=== PATIENT | female | born 1960 | race African-American/Black ===

== ENCOUNTER 2023-02-21 18:35 | Emergency (ER) | payer OTHER | END 2023-02-21 22:17 | disposition left against medical advice (07) | LOC: MED 18:35 | DX: Z53.21 Procedure and treatment not carried out due to patient leaving prior to being seen by health care provider (principal) ==

== ENCOUNTER 2023-02-24 08:28 | Emergency (ER) | payer OTHER ==
[~2023-02-24] VITALS: Ht 175.3 cm; Wt 87.1 kg
[2023-02-24] VITALS (8 sets, daily range): BP systolic 155–163; BP diastolic 93–99; PULSE 74–88; RESP 17–18; TEMP 97.9–98.7; O2SAT 98–100
[2023-02-24 10:32] LABS: BASOPHILS # (AUTO) 0.1 K/uL (0.00-0.22); EOSINOPHILS # (AUTO) 0.1 K/uL (0-0.4); EOSINOPHILS % (AUTO) 2.1 % (0.0-4.0); HEMATOCRIT 31.9 % (36-48); HEMOGLOBIN 10.6 g/dL (12.0-16.0); LYMPHOCYTES # (AUTO) 0.9 K/uL (2.5-16.5); LYMPHOCYTES % (AUTO) 13.3 % (20.5-51.1); MEAN CORPUSCULAR HEMOGLOBIN 30 pg (27-31); MEAN CORPUSCULAR HGB CONC 33 g/dL (33-37); MEAN CORPUSCULAR VOLUME 89.2 fL (80-94); MONOCYTES # (AUTO) 0.7 K/uL (0.8-1.0); MONOCYTES % (AUTO) 10.8 % (1.7-9.3); NEUTROPHILS # (AUTO) 4.9 K/uL (1.8-7.7); NEUTROPHILS % (AUTO) 72.8 % (42.2-75.2); PLATELET COUNT (AUTO) 221 K/uL (140-450); RED BLOOD CELL COUNT(AUTO) 3.57 MIL/uL (4.20-5.40); RED CELL DISTRIBUTION WIDTH 13.9 % (11.6-13.7); WHITE BLOOD COUNT (AUTO) 6.7 K/uL (4.8-10.8)
[2023-02-24 10:42] LABS: ANION GAP 13.7 (8-16); CALCIUM 8.9 mg/dL (8.5-10.1); CARBON DIOXIDE 28.1 mmol/L (21-32); CREATININE 0.7 mg/dL (0.6-1.3); POTASSIUM 3.8 mmol/L (3.5-5.1)
[2023-02-24] MEDS ORDERED: KETOROLAC 30 MG/ML VIAL IVP ONE (11:45)
[2023-02-24] MEDS ORDERED: ACETAMINOPHEN EXTRA STRENGTH 500 MG TAB PO ONE (11:45)
[2023-02-24] MEDS ORDERED: KETOROLAC 15 MG/ML VIAL ONE (12:03)
[2023-02-24] MEDS ORDERED: AMPICILLIN/SULBACTAM 3 GM in NACL 0.9% 100 ML IV ONE (12:55)
[2023-02-24] MEDS ORDERED: AMPICILLIN/SULBACTAM 3 GM VIAL ONE (13:48)
[2023-02-24] MEDS ORDERED: LIDOCAINE MPF 1% 5 ML ONE ×4 (18:18→18:29)
[2023-02-24] MEDS ORDERED: LIDOCAINE MPF 1% 10 MG/ML VIAL INJ ONE ×2 (18:20)
[2023-02-24] MEDS ORDERED: MORPHINE SULFATE 4 MG/ML SYR IVP ONE (19:00)
[2023-02-24] MEDS ORDERED: VIB100 PO ×3 (19:01→19:44)
[2023-02-24] MEDS ORDERED: ACET-8905 PO ×3 (19:01→19:44)
[2023-02-24] MEDS ORDERED: IBUP-2213 PO ×3 (19:01→19:44)
[2023-02-24] MEDS ORDERED: AMOX-999 PO ×3 (19:01→19:44)
== END 2023-02-24 19:47 | disposition home or self-care (01) ==
LOC: MED 08:28
DX: L02.511 Cutaneous abscess of right hand (principal); Z79.899 Other long term (current) drug therapy
CPT/HCPCS: 36415; 73130; 80048; 85025; 85651; 86140; 87040; 96365; 96375; 99284; J0295; J1885; J2001; J2270

== ENCOUNTER 2024-01-10 | Emergency (ER) | payer OTHER ==
[~2024-01-10] VITALS: Ht 172.7 cm; Wt 72.6 kg
[~2024-01-10] MED LIST: ACET-8905 PO; AMOX-999 PO; IBUP-2213 PO; VIB100 PO
[2024-01-10 00:05] VITALS: BP 147/70; PULSE 85; RESP 20; O2SAT 96
--- NOTE | 2024-01-10 00:09 | NUR ---
BIBA ALS TO 10
--- NOTE | 2024-01-10 00:10 | NUR ---
MATTTucker FROM HOME WITH C/O SYNCOPAL EPISODE YESTERDAY AM. PT ADMITS HAS BEEN HAVING PROBLEMS WITH SIGNIFICANT OTHER AND HAS BEEN DRINKING ALCOHOL HEAVILY FOR PAST 2 DAYS AND SAYS THAT SHE IS DEHDRATED. 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 PMH : ASTHMA
[2024-01-10] MEDS: MECLIZINE 25 MG TAB PO ONE (00:52)
[2024-01-10 00:55] LABS: BASOPHILS # (AUTO) 0.1 K/uL (0.00-0.22); EOSINOPHILS # (AUTO) 0.1 K/uL (0-0.4); EOSINOPHILS % (AUTO) 2.5 % (0.0-4.0); HEMATOCRIT 33.6 % (36-48); HEMOGLOBIN 11.3 g/dL (12.0-16.0); LYMPHOCYTES # (AUTO) 1.9 K/uL (2.5-16.5); LYMPHOCYTES % (AUTO) 35.6 % (20.5-51.1); MEAN CORPUSCULAR HEMOGLOBIN 28 pg (27-31); MEAN CORPUSCULAR HGB CONC 34 g/dL (33-37); MEAN CORPUSCULAR VOLUME 83.2 fL (80-94); MONOCYTES # (AUTO) 0.4 K/uL (0.8-1.0); MONOCYTES % (AUTO) 8.1 % (1.7-9.3); NEUTROPHILS # (AUTO) 2.8 K/uL (1.8-7.7); NEUTROPHILS % (AUTO) 52.8 % (42.2-75.2); PLATELET COUNT (AUTO) 200 K/uL (140-450); RED BLOOD CELL COUNT(AUTO) 4.04 MIL/uL (4.20-5.40); RED CELL DISTRIBUTION WIDTH 13.7 % (11.6-13.7); WHITE BLOOD COUNT (AUTO) 5.3 K/uL (4.8-10.8)
--- NOTE | 2024-01-10 00:55 | NUR ---
pt to ct via wheelchair
--- NOTE | 2024-01-10 01:05 | NUR ---
pt return from ct
[2024-01-10 01:11] LABS: ANION GAP 16.1 (8-16); CALCIUM 9.6 mg/dL (8.5-10.1); CARBON DIOXIDE 28.7 mmol/L (21-32); CREATININE 0.7 mg/dL (0.6-1.3); INR 1.01 (0.8-1.2); PARTIAL THROMBOPLASTIN TIME 26.5 secs (22-35.6); PROTHROMBIN TIME 10.6 secs (10.8-13.4)
[2024-01-10 01:18] LABS: ALANINE AMINOTRANSFERASE 21 U/L (12-78); ALBUMIN 3.6 g/dL (3.4-5.0); ALCOHOL, BLOOD 232 mg/dL (<10); ALKALINE PHOSPHATASE 87 U/L (50-136); ASPARTATE AMINOTRANSFERASE 18 U/L (15-37); BILIRUBIN,DIRECT 0.1 mg/dL (0.0-0.3); TOTAL BILIRUBIN 0.2 mg/dL (0.0-1.0); TOTAL PROTEIN, SERUM 7.7 g/dL (6.4-8.2)
[2024-01-10 01:19] LABS: POTASSIUM 2.8 mmol/L (3.5-5.1)
--- NOTE | 2024-01-10 01:20 | NUR ---
Dr Gómez at bedside educating pt about potassium. pt administered potassium medication as prescribed
--- NOTE | 2024-01-10 01:30 | NUR ---
pt continues c/o dizziness aware
[2024-01-10] MEDS: POTASSIUM CHLORIDE 10 MEQ TABER PO ONE (01:36)
--- NOTE | 2024-01-10 03:15 | NUR ---
TO [facility], AMBULATORY WITH STEADY GAIT
[2024-01-10] MEDS: KETOROLAC 30 MG/ML VIAL IVP ONE (03:38)
[2024-01-10] MEDS ORDERED: POTA10TA70 PO (04:18)
[2024-01-10] MEDS ORDERED: MECL-303 PO (04:18)
--- NOTE | 2024-01-10 04:30 | NUR ---
pt educated on discharge packet, pt request pharmacy change for discharge medications. pt verbalized feeling dizzy still and reports she is concerned to go home because she "feels like she will fall at home" discharge paperwork not signed, Dr. Gómez notified. pt prefprmed a road test with myself and Raffa EMT. pt reported dizziness and had unsteady gait. Dr. Velzáquez notified and additional orders received.
--- NOTE | 2024-01-10 04:40 | NUR ---
pt ambulated to the restroom with myself and Jocelyn EMT. pt collected a UA as ordered. Assisted with ambulation back to the bed. pt educated on new orders of fluids and UA.
[2024-01-10 04:55] VITALS: BP 157/83; PULSE 72; RESP 17; O2SAT 97
--- NOTE | 2024-01-10 05:15 | NUR ---
IV ESTABLISHED, FLUID BOLUS BEGUN
[2024-01-10 05:27] LABS: APPEARANCE,URINE CLEAR (CLEAR); BILIRUBIN,URINE NEGATIVE (NEGATIVE); BLOOD, URINE NEGATIVE (NEGATIVE); COLOR,URINE YELLOW (YELLOW); LEUKOCYTE ESTERASE ,URINE 1+ (NEGATIVE); NITRITE, URINE NEGATIVE (NEGATIVE); PROTEIN,URINE 1+ (NEGATIVE); UGLUCOSE NEGATIVE (NEGATIVE); UROBILINOGEN,URINE 0.2 EU/dL (0.2 - 1)
[2024-01-10 05:29] LABS: MAGNESIUM 1.9 mg/dL (1.8-2.4); PHOSPHORUS 3.4 mg/dL (2.5-4.9)
[2024-01-10 05:36] LABS: BACTERIA,URINE 10-30 (MOD) /HPF (None Seen); MUCUS,URINE 1+ /LPF (None Seen); RBC,URINE 0-5 /HPF (0-5); SQUAMOUS EPITHELIAL CELL,UR 0-3 (FEW) /LPF (0-3 (FEW))
[2024-01-10] MEDS: NACL 0.9% 1,000 ML IV ONE (05:37)
[2024-01-10] MEDS ORDERED: CEPH-588 PO (05:40)
--- NOTE | 2024-01-10 05:45 | NUR ---
pt reports decreases in dizziness after receiving IV fluids, Dr Streeter educated pt on UA results and new medication for discharge. pt reports feeling comfortable to be discharged home. new discharge packet given to pt with patient education on updated prescription and diagnosis. pharmacy for medication updated by Dr Gómez
--- NOTE | 2024-01-10 06:00 | NUR ---
Patient discharged with v/s stable. Written and verbal after care instructions given and explained. Patient alert, oriented and verbalized understanding of instructions. Ambulatory with steady gait. All questions addressed prior to discharge. ID band removed. Patient advised to follow up with PMD. Rx of cephalexin. meclizine hcl, potassium given. Patient educated on indication of medication including possible reaction and side effects. Opportunity to ask questions provided and answered. called an uber for pt to assist home
== END 2024-01-10 06:14 | disposition home or self-care (01) ==
LOC: MED
DX: F10.129 Alcohol abuse with intoxication, unspecified (principal); E87.6 Hypokalemia; R42 Dizziness and giddiness; R03.0 Elevated blood-pressure reading, without diagnosis of hypertension; J45.909 Unspecified asthma, uncomplicated; Z79.899 Other long term (current) drug therapy; Y90.7 Blood alcohol level of 200-239 mg/100 ml
CPT/HCPCS: 36415; 70450; 71045; 72125; 80048; 80076; 81001; 83735; 83880; 84100; 84484; 85025; 85610; 85730; 87086; 93005; 96360; 96372; 99285; G0482; J1885; J7030; J8597; Q0092